=== PATIENT | female | born 1980 | race Caucasian/White ===

== ENCOUNTER 2024-09-19 10:39 | Outpatient (CLI) | payer BC | END 2024-09-19 10:40 | disposition home or self-care (01) | LOC: NAV RAD 10:39 | PROVIDERS: ATTEND Family Medicine | DX: R10.32 Left lower quadrant pain (principal); K63.9 Disease of intestine, unspecified | CPT/HCPCS: 74177 ==

== ENCOUNTER 2025-05-13 16:17 | Outpatient (CLI) | payer BC | END 2025-05-13 16:18 | disposition home or self-care (01) | LOC: NAV RAD 16:17 | PROVIDERS: ATTEND Family Medicine | DX: M79.672 Pain in left foot (principal) ==